=== PATIENT | female | born 1990 | race Caucasian/White ===

== ENCOUNTER → 2018-09-28 | Outpatient (CLI) | payer OTHER ==
--- NOTE | 2018-09-28 16:48 | Diagnostic Imaging Report ---
INDICATION: Supervision of normal second trimester , anatomic survey COMPARISON: None available Number: One. Presentation: Breech. Placenta: Posteriorly located without evidence of placenta previa. Amniotic fluid is subjectively within normal limits. Heart Rate: 143 bpm biometrics are symmetric. They are consistent with an estimated gestational age of 21 weeks and 5 days. Therefore, there is an estimated due date based upon this examination of February 03, 2019. FINDINGS: The anatomic survey is grossly unremarkable though limited secondary to Y. In particular, the four-chambered heart and umbilical cord insertion were not well seen. Additionally, the intracranial contents were not optimally visualized. The spine is unremarkable. The kidneys, urinary bladder, and three-vessel cord are unremarkable. IMPRESSION: Single live intrauterine at approximately 21 weeks and 5 days, with an DON of February 03, 2019. These are consistent with clinical dates. No gross abnormalities are seen at this time. However, evaluation of the intracranial contents, four-chambered heart, and cord insertion were limited secondary to lie. Biometrical measurements are as follows: Biparietal 5.23 cm, age 22 weeks 0 days. Head circumference 19.93 cm, age 22 weeks 1 days. Abdominal circumference 16.15 cm, age 21 weeks 2 days. Femur length 3.57 cm, age 21 weeks 3 days. Sonographic estimate age: 21 weeks 5 days. Sonographic estimated date of delivery: 02/03/2019. Estimated Weight: 419 gm (+/- 61 gm). LMP percentile: 13%. heart rate: 143 beats per minute. number: 1 of 1. Dictated by: Dictated on workstation # [id number]
== END ==
LOC: RAD 14:51
DX: Z34.92 Encounter for supervision of normal pregnancy, unspecified, second trimester (principal); Z3A.21 21 weeks gestation of pregnancy
CPT/HCPCS: 76805

== ENCOUNTER 2019-01-10 17:00 | Inpatient (IN) | payer OTHER ==
[~2019-01-10] VITALS: Ht 165.1 cm; Wt 63.2 kg
[2019-01-10] VITALS (33 sets, daily range): BP systolic 87–129; BP diastolic 53–80
--- NOTE | 2019-01-10 16:41 | NUR ---
SHIV ROBISON presented to unit from Dr. Orona's Office, accompanied by , with c/o LABOR. SHIV ROBISON weighed, gowned, voided, and to bed. EFHM and TOCO applied, VS taken. SHIV ROBISON oriented to bed controls, call light, TV, heat, and A/C controls.
--- NOTE | 2019-01-10 17:13 | History & Physical-OB ---
OB - Chief Complaint & HPI Date/Time Date of Admission: Date of Admission: Jan 10, 2019 at 17:00 Date seen by a Provider: Jan 10, 2019 Time Seen by a Provider: 17:11 Chief Complaint/History Hx : 7 Hx Para: 3 Expected Date of Delivery: Jan 30, 2019 Gestational Age in Weeks: 37 Gestational Age in Days: 1 Indication for induction: post dates Admission Nurse Assessment Rev: Yes History of Labs O pos Antibody neg RI RPR NR HBsAg NR HIV NR GC neg GBS neg Allergies and Home Medications Patient Home Medication List Home Medication List Reviewed: Yes OB - History Hx of Present Care: Yes Ultrasounds: Normal mid trimester US Obstetrical Complications: None Medical Complications: None Patient Past Medical History n/a OB - Admission Exam Physical Exam HEENT: NCAT Heart: Rhythm Normal Lungs: Clear Abdomen: Gravid Extremities: Normal Cervical Dilatation: 4cm Effacement: 75% Station: -1 Membranes: Intact Heart Rate: 130's Accelerations: Accelerations Present Decelerations: No Decelerations Short Term Variability: Present Repairer Veneer Sheet Variability: Average (6-25) Contractions on Admission: < 5 Minutes Apart OB - Assessment/Plan/Diagnosis Assessment Assessment: active labor Admission Dx 28 yo @ 37.1 Active labor GBS neg Admission Status: Inpatient Order (span 2 midnights) Reason for Inpatient Admission: Active labor at term NURY VELEZ DO Jan 10, 2019 17:13
[2019-01-10] MEDS ORDERED: D5 LR IV SOLUTION 1,000 ML IV ONE (17:15)
[2019-01-10] MEDS ORDERED: D5 LR IV SOLUTION 1,000 ML IV SCH (17:15)
[2019-01-10] MEDS ORDERED: LACTATED RINGERS 1,000 ML IV ONE ×3 (17:15→19:28)
[2019-01-10] MEDS ORDERED: OXYTOCIN/NORMAL SALINE 500 ML IV SCH (17:15)
[2019-01-10 17:35] LABS: BASOPHILS % (AUTO) 0 % (0-10); EOSINOPHILS # (AUTO) 0.1 10^3/uL (0.0-0.3); EOSINOPHILS % (AUTO) 1 % (0-10); HEMATOCRIT 35 % (35-52); HEMOGLOBIN 11.6 G/DL (11.5-16.0); LYMPHOCYTES % (AUTO) 17 % (12-44); MEAN CORPUSCULAR HEMOGLOBIN 28 PG (25-34); MEAN CORPUSCULAR HGB CONC 33 G/DL (32-36); MEAN CORPUSCULAR VOLUME 85 FL (80-99); MEAN PLATELET VOLUME 9.7 FL (7.4-10.4); MONOCYTES % (AUTO) 9 % (0-12); NEUTROPHILS # (AUTO) 8.8 X 10^3 (1.8-7.8); NEUTROPHILS % (AUTO) 74 % (42-75); PLATELET COUNT 238 10^3/uL (130-400); RED CELL DISTRIBUTION WIDTH 12.7 % (10.0-14.5); WHITE BLOOD COUNT 11.9 10^3/uL (4.3-11.0)
[2019-01-10] MEDS ORDERED: SUFENTA 0.6MCG/ML BUPIVA 0.125 100 ML ONE (18:16)
[2019-01-10] MEDS ORDERED: BUPIVACAINE 0.25% 30 ML (SENSORCAINE) VIAL ONE (18:54)
[2019-01-10] MEDS ORDERED: fentaNYL INJECTION 100 MCG/2 ML AMP ONE (18:54)
[2019-01-10] MEDS ORDERED: LIDOCAINE PF 2% 5 ML (XYLOCAINE) VIAL ONE (18:54)
[2019-01-10] MEDS ORDERED: NALOXONE 0.4 MG/ML 1 ML (NARCAN) VIAL IV PRN (19:30)
[2019-01-10] MEDS ORDERED: EPIDURAL (SUFENTA 0.6MCG/ML BUPIVA 0.125%) 100 ML BAG EPI PRN (19:30)
[2019-01-10] MEDS ORDERED: ONDANSETRON 4 MG/2 ML (SDV) Z0FRAN IV PRN (19:30)
--- NOTE | 2019-01-10 19:30 | NUR ---
Report to Karen GOFF.
[2019-01-10] MEDS: OXYTOCIN/NORMAL SALINE 500 ML IV SCH ×2 (20:55→21:27)
--- NOTE | 2019-01-10 21:11 | OB Labor & Delivery Record ---
L&D History Date of Service Date of Service: Jan 10, 2019 History Expected Date of Delivery: Jan 25, 2019 Gestational Age in Weeks: 37 Hx : 7 Hx Para: 3 Complications Events: Routine care Operative Indications (Cesarea: N/A-Vaginal Delivery Intrapartal Events: None L&D Stage1 Stage One Onset of Labor - Date: Jan 10, 2019 Monitors and Tracing Monitor Mode: External Heart Rate: 130 Monitor Accelerations: Uniform Monitor Decelerations: None Station: -1 Fpc Variability: Average (6-10) Short Term Variability: Present Presentation: Vertex Vital Signs VS - Last 72 Hours, by Label 01/10/19 01/10/19 01/10/19 01/10/19 16:47 17:30 18:00 18:30 Temp 36.9 Pulse 98 83 76 80 Resp 16 16 16 16 B/P (MAP) 115/66 110/72 117/72 129/62 O2 Delivery Room Air Room Air Room Air Room Air 01/10/19 19:00 Temp 37.1 Pulse 86 Resp 16 B/P (MAP) 123/69 O2 Delivery Room Air Rupture of Membranes Spontaneous Ruture of Membrane: No Amniotic Membrane Rupture Time: 1717 Amniotic Membrane Fluid Desc.: Clear Vaginal Bleeding Description: Normal Show Induction/Anesthesia Epidural Cath Placement - Time: 18:30 Progress/Notes Patient progressed rapidly after AROM to complete and + 2 station after epidural was placed without any further augmentation L&D Stage2 Stage Two Stage II Date: Jan 10, 2019 Monitors and Tracing Monitor Mode: External Heart Rate: 130 Monitor Decelerations: Variable Fpc Variability: Average (6-10) Short Term Variability: Present Position: Right Occiput Anterior Presentation: Vertex Cord Descript/Complications Cord Vessel Description: 3 Vessels Delivery Type Infant Delivery Method: Spontaneous Vaginal Anterior Shoulder: Right Episiotomy/Perineal Laceration Laceraction(s)/Extensions: No Condition of Infant Delivery 1 minute Comment: 9 5 minute Comment: 9 Notes live female weight pending Condition of Condition of Infant: Living Exam: No Observed Abnormalities Resuscitation Resuscitation: N/A - Spontaneous Resp L&D Stage3 Stage Three Stage III Date: Jan 10, 2019 Pictocin Pitocin Administration Comment: 30 mu wide open at delivery of placenta Placenta Delivery Placenta Delivery: Spontaneous Delivery Summary Summary Estimated blood loss (mL): 200 Attending at delivery: Nury Velez DO Condition of Delivery Examined: Cervix Examined, Uterus Explored Post Hemorrhage: No Condition of Mother stable Condition of Infant (s) stable NURY VELEZ DO Jan 10, 2019 9:11 pm
[2019-01-10] MEDS ORDERED: DOCU100C37 PO (21:12)
[2019-01-10] MEDS ORDERED: PNV1TABL67 PO (21:12)
[2019-01-10] MEDS ORDERED: IBUP-844 PO (21:12)
[2019-01-10] MEDS ORDERED: Benzocaine/Menthol TP (21:12)
[2019-01-10] MEDS ORDERED: ACHD5005 PO (21:12)
--- NOTE | 2019-01-10 21:13 | Discharge Inst-Women's Service ---
Discharge Inst-Women's Serv Depart Medication/Instructions New, Converted or Re-Newed RX: RX on Chart Final Diagnosis PPD 2 NVD Problems Reviewed?: Yes Consults/Follow Up Additional Follow Up: Yes Orders/Referrals Dr. Velez in 6 weeks Activity Driving Instructions: No Driving for 1 Week NO SMOKING: NO SMOKING Nothing Inside Vagina: No Douching, No [place], No Tampons Diet Discharge Diet: No Restrictions Symptoms to Report to : Bleeding Excessive, Pain Increased, Fever Over 101 D egrees F, Vaginal Bleeding Increase, Questions/Concerns For Any Problems or Questions: Contact Your Physician NURY VELEZ DO Jan 10, 2019 9:13 pm
[2019-01-10] MEDS ORDERED: WITCH HAZEL(TUCKS) 40 EA JAR TOP PRN (21:15)
[2019-01-10] MEDS ORDERED: HYDROcodone/APAP 5 MG/325 MG (LORTAB) TAB PO PRN (21:15)
[2019-01-10] MEDS ORDERED: MEASLES,MUMPS,RUBELLA 1 EA INJ SQ ONE (21:15)
[2019-01-10] MEDS ORDERED: DIBUCAINE (NUPERCAINAL) 1% OINT 30 GM TOP PRN (21:15)
[2019-01-10] MEDS ORDERED: TETANUS,DIPTH,PERTUSS P/F (BOOSTRIX) 0.5 ML VIAL IM ONE (21:15)
[2019-01-10] MEDS ORDERED: BENZOCAINE/MENTHOL (DERMOPLAST) 56 ML CAN TP PRN (21:15)
[2019-01-10] MEDS ORDERED: CATHETER FLUSH 10 ML SYR IV SCH ×2 (22:00)
[2019-01-10] MEDS: IBUPROFEN 600 MG (MOTRIN) TAB PO SCH (22:22)
--- NOTE | 2019-01-10 23:40 | NUR ---
Pt. ambulated to bathroom with standby assist without difficulty. Positive void noted. Will move to PP room 309 soon.
--- NOTE | 2019-01-10 23:45 | NUR ---
Pt. moved to PP room 309 via wheelchair. Accompanied by staff, , and . Pt. oriented to room, room service, call light, and thermostat. folder given and explained. No questions or concerns voiced at this time.
[2019-01-11 04:15] VITALS: BP 97/67
[2019-01-11] MEDS: IBUPROFEN 600 MG (MOTRIN) TAB PO SCH ×4 (04:27→21:41)
[2019-01-11 05:52] LABS: BASOPHILS % (AUTO) 0 % (0-10); EOSINOPHILS # (AUTO) 0.1 10^3/uL (0.0-0.3); EOSINOPHILS % (AUTO) 1 % (0-10); HEMATOCRIT 31 % (35-52); HEMOGLOBIN 10.2 G/DL (11.5-16.0); LYMPHOCYTES # (AUTO) 1.9 X 10^3 (1.0-4.0); LYMPHOCYTES % (AUTO) 19 % (12-44); MEAN CORPUSCULAR HEMOGLOBIN 29 PG (25-34); MEAN CORPUSCULAR HGB CONC 33 G/DL (32-36); MEAN CORPUSCULAR VOLUME 87 FL (80-99); MEAN PLATELET VOLUME 9.6 FL (7.4-10.4); MONOCYTES # (AUTO) 1.1 X 10^3 (0.0-1.0); MONOCYTES % (AUTO) 11 % (0-12); NEUTROPHILS # (AUTO) 6.7 X 10^3 (1.8-7.8); NEUTROPHILS % (AUTO) 69 % (42-75); PLATELET COUNT 170 10^3/uL (130-400); RED CELL DISTRIBUTION WIDTH 12.6 % (10.0-14.5); WHITE BLOOD COUNT 9.7 10^3/uL (4.3-11.0)
[2019-01-11] MEDS ORDERED: PRENATAL VITAMIN 1 EA TAB PO SCH (07:00)
--- NOTE | 2019-01-11 07:09 | Anesthesia-Regional Post-Op ---
Regional Patient Condition Mental Status: Alert, Oriented x3 Circulation: Same as Pre-Op Headache: Absent Sensation: Full Recovery Motor Block: Absent Post Op Complications Complications None Follow Up Care/Instructions Patient Instructions None needed. Anesthesia/Patient Condition Patient is doing well, no complaints, stable vital signs, no apparent adverse anesthesia problems. No complications reported per nursing. REBEKA BAHENA CRNA Jan 11, 2019 07:08
[2019-01-11 07:35] VITALS: BP_SYST 102; BP_SYST 103; BP_DIAS 59; BP_DIAS 67
--- NOTE | 2019-01-11 08:10 | Postpartum Progress Note ---
Note Note Day # 1 Subjective: Patient is without complaints. Ambulating, voiding. Tolerating a regular diet without nausea or vomiting. Normal lochia. Pain is well controlled with oral pain medications. Objective: Physical Exam: General - Alert and oriented, no apparent distress Abdomen - Soft, appropriately tender to palpation, non-distended, fundus firm at umbilicus Extremities - no edema, negative Orly's bilaterally Assessment: PPD 1 NVD Acute blood loss anemia Plan: Routine care. Encourage breast feeding. Encourage ambulation. Ferrous sulfate supplementation. Plan for discharge tomorrow Vitals - Labs Vital Signs - I&O Vital Signs Date Time Temp Pulse Resp B/P (MAP) Pulse Ox O2 Delivery O2 Flow Rate FiO2 01/11/19 04:15 36.7 76 16 97/67 Room Air 01/10/19 23:30 37.1 79 16 96/53 Room Air 01/10/19 23:15 85 16 98/58 Room Air 01/10/19 23:00 86 16 103/56 Room Air 01/10/19 22:45 88 16 116/73 Room Air 01/10/19 22:30 82 16 99/67 Room Air 01/10/19 22:15 71 16 103/71 Room Air 01/10/19 22:00 70 16 107/72 Room Air 01/10/19 21:45 78 16 109/69 Room Air 01/10/19 21:30 68 16 103/64 Room Air 01/10/19 21:15 84 16 87/57 100 Room Air 01/10/19 21:00 37.0 74 16 118/64 100 Room Air 01/10/19 20:45 74 16 118/64 100 Room Air 01/10/19 20:15 93 16 105/74 99 Room Air 01/10/19 20:06 71 16 110/64 98 Room Air 01/10/19 20:03 74 16 109/64 97 Room Air 01/10/19 20:00 80 16 102/79 97 Room Air 01/10/19 19:52 36.7 88 16 109/70 98 Room Air 01/10/19 19:49 79 16 107/65 98 Room Air 01/10/19 19:46 78 16 102/59 98 Room Air 01/10/19 19:43 83 16 101/63 98 Room Air 01/10/19 19:40 79 16 105/64 98 Room Air 01/10/19 19:35 77 16 110/68 98 Room Air 01/10/19 19:30 90 16 113/70 98 Room Air 01/10/19 19:25 97 16 112/78 97 Room Air 01/10/19 19:20 37.2 89 16 122/68 98 Room Air 01/10/19 19:15 78 16 111/69 99 Room Air 01/10/19 19:10 80 16 117/78 99 Room Air 01/10/19 19:05 83 16 116/80 98 Room Air 01/10/19 19:00 37.1 86 16 123/69 Room Air 01/10/19 18:30 80 16 129/62 Room Air 01/10/19 18:00 76 16 117/72 Room Air 01/10/19 17:30 83 16 110/72 Room Air 01/10/19 16:47 36.9 98 16 115/66 Room Air I & O 01/11/19 07:00 Intake Total 2600 ml Balance 2600 ml Labs Laboratory Tests 01/10/19 17:00: White Blood Count 11.9H, Red Blood Count 4.12L, Hemoglobin 11.6, Hematocrit 35, Mean Corpuscular Volume 85, Mean Corpuscular Hemoglobin 28, Mean Corpuscular Hemoglobin Concent 33, Red Cell Distribution Width 12.7, Platelet Count 238, Mean Platelet Volume 9.7, Neutrophils (%) (Auto) 74, Lymphocytes (%) (Auto) 17, Monocytes (%) (Auto) 9, Eosinophils (%) (Auto) 1, Basophils (%) (Auto) 0, Neutrophils # (Auto) 8.8H, Lymphocytes # (Auto) 2.0, Monocytes # (Auto) 1.0, Eosinophils # (Auto) 0.1, Basophils # (Auto) 0.0 01/11/19 05:25: White Blood Count 9.7, Red Blood Count 3.54L, Hemoglobin 10.2L, Hematocrit 31L, Mean Corpuscular Volume 87, Mean Corpuscular Hemoglobin 29, Mean Corpuscular Hemoglobin Concent 33, Red Cell Distribution Width 12.6, Platelet Count 170, Mean Platelet Volume 9.6, Neutrophils (%) (Auto) 69, Lymphocytes (%) (Auto) 19, Monocytes (%) (Auto) 11, Eosinophils (%) (Auto) 1, Basophils (%) (Auto) 0, Neutrophils # (Auto) 6.7, Lymphocytes # (Auto) 1.9, Monocytes # (Auto) 1.1H, Eosinophils # (Auto) 0.1, Basophils # (Auto) 0.0 NURY VELEZ DO Jan 11, 2019 08:10
[2019-01-11] MEDS ORDERED: FERROUS SULF 325 MG (IRON) TAB PO SCH (09:00)
[2019-01-11] MEDS: DOCUSATE SODIUM 100 MG (COLACE) CAP PO SCH ×2 (10:15→21:41)
[2019-01-11 11:00] VITALS: BP 107/68
[2019-01-11 20:00] VITALS: BP 107/68
--- NOTE | 2019-01-11 22:24 | NUR ---
D/C instructions given & explained, pt. verbalized understanding & signed, copy of D/C instructions & Rx to pt. Pt. left [facility] ambulatory per request, escorted by Josef Michelle RN & carrying infant in carseat, to home via private vehicle. Pt. & both properly secured in vehicle w/safety belts. Pt's belongings w/pt.
== END 2019-01-11 22:24 | disposition home or self-care (01) | DRG 806 ==
LOC: LDRP 17:00
PROVIDERS: ADMIT Obstetrics & Gynecology; ATTEND Obstetrics & Gynecology
PROC: 10E0XZZ Delivery of Products of Conception, External Approach (ICD-10-PCS; principal; 2019-01-10)
DX: O90.81 Anemia of the puerperium (principal); D62 Acute posthemorrhagic anemia; Z3A.37 37 weeks gestation of pregnancy; Z37.0 Single live birth
CPT/HCPCS: 36415; 85025; 86850; 86900; 86901

== ENCOUNTER → 2019-08-28 | Outpatient (CLI) | payer OTHER ==
[~2019-08-28] MED LIST: ACHD5005 PO; Benzocaine/Menthol TP; DOCU100C37 PO; IBUP-844 PO; PNV1TABL67 PO
--- NOTE | 2019-08-28 11:36 | Diagnostic Imaging Report ---
INDICATION: survey. TECHNIQUE: Multiple Real-time grayscale images were obtained over the gravid uterus. COMPARISON: None. FINDINGS: There is a single live fetus in a cephalic presentation. The heart rate was recorded at 144 BPM. The placenta is posterior. The amniotic fluid index is 11.4 cm. The cervical length is 3.7 cm. The kidneys, bladder, and stomach are unremarkable. The brain is unremarkable. The four-chamber heart view is somewhat limited due to position. There is a three-vessel cord with normal insertion. The spine is unremarkable. Biometrical measurements are as follows: Biparietal 4.73 cm, age 20 weeks 3 days. Head circumference 17.52 cm, age 20 weeks 1 days. Abdominal circumference 14.81 cm, age 20 weeks 1 days. Femur length 3.22 cm, age 20 weeks 1 days. Sonographic estimate age: 20 weeks 2 days. Sonographic estimated date of delivery: 01/13/2020. Estimated Weight: 330 gm (+/- 48 gm). LMP percentile: 49%. heart rate: 144 beats per minute. number: 1 of 1. IMPRESSION: Single live IUP of 20 weeks gestational age. The estimated date of confinement sonographically is 01/13/2020. The survey is unremarkable although the four-chamber heart view is somewhat limited due to position. Dictated by: Dictated on workstation # [id number]
== END ==
LOC: RAD 09:51
PROVIDERS: ATTEND Obstetrics & Gynecology
DX: Z36.9 Encounter for antenatal screening, unspecified (principal); Z3A.20 20 weeks gestation of pregnancy
CPT/HCPCS: 76805

== ENCOUNTER 2019-12-14 19:39 | Outpatient (CLI) | payer OTHER ==
[~2019-12-14] VITALS: Ht 165.1 cm; Wt 66.7 kg
[2019-12-14 19:53] VITALS: BP 140/77
--- NOTE | 2019-12-14 19:53 | NUR ---
SHIV ROBISON presented to unit via ambuatory from ED, with c/o ABD PRESSURE. SHIV ROBISON weighed, gowned, voided, and to bed. EFHM and TOCO applied, VS taken. SHIV ROBISON oriented to bed controls, call light, TV, heat, and A/C controls.
[2019-12-14 20:06] VITALS: BP 140/77
[2019-12-14 20:06] LABS: BILIRUBIN,URINE NEGATIVE (NEGATIVE); CLARITY,URINE CLEAR; COLOR,URINE YELLOW; GLUCOSE, URINE (UA) NEGATIVE (NEGATIVE); KETONES,URINE TRACE (NEGATIVE); LEUKOCYTE ESTERASE ,URINE NEGATIVE (NEGATIVE); NITRITE,URINE NEGATIVE (NEGATIVE); PROTEIN,URINE NEGATIVE (NEGATIVE)
--- NOTE | 2019-12-14 20:20 | NUR ---
Dr. fuentes updated on pt's arrival and complaints of pelvic pressure. Will cont to monitor and recheck cervix. Pt states missed OB appointment today due to taking daughter to curt to dr appointment, daughter had fractured femur, and cast removed. pt states was lifting daughter a lot today. pt states pain started this evening and has been increasing.
[2019-12-14 20:21] LABS: BACTERIA,URINE TRACE /HPF; RBC,URINE 0-2 /HPF; WBC,URINE 0-2 /HPF
[2019-12-14 20:23] LABS: AMORPHOUS SEDIMENT,UR FEW AMOR URATES /LPF
--- NOTE | 2019-12-14 21:20 | NUR ---
called and updated regarding sve, ctx's, pain and ua results. new orders received.
[2019-12-14] MEDS ORDERED: LACTATED RINGERS 1,000 ML IV SCH (21:30)
[2019-12-14 22:50] VITALS: BP 126/73
--- NOTE | 2019-12-14 22:53 | NUR ---
Pt desires to go home, called and updated on no SVE change but cont to contract. DC orders received.
[2019-12-14 22:57] VITALS: BP 126/73
--- NOTE | 2019-12-14 23:07 | NUR ---
Discharge instructions read and reviewed with pt. pt verbalized understanding.
--- NOTE | 2019-12-14 23:08 | NUR ---
Pt ambulated off unit. no s/s of distress noted.
--- NOTE | 2019-12-15 08:03 | Physician Query-Final Dx ---
HOUSTON CERVANTES 12/15/19 0803: Clinic Account Progress/Dx Physician Query: Please give diagnosis Please include # weeks gestation Date of Service Dec 14, 2019 at 19:39 NURY VELEZ DO 12/15/19 2233: Clinic Account Progress/Dx DIAGNOSIS: Diagnosis 36 week IUP Uterine contractions HOUSTON CERVANTES Dec 15, 2019 08:03 NURY VELEZ DO Dec 15, 2019 22:33
[2019-12-15] MEDS ORDERED: CEPH-507 PO (18:35)
== END 2019-12-14 23:08 | disposition home or self-care (01) ==
LOC: WSo 19:39 → LDRP 19:41 → WSo 23:08
PROVIDERS: ATTEND Obstetrics & Gynecology
DX: O62.9 Abnormality of forces of labor, unspecified (principal); Z3A.36 36 weeks gestation of pregnancy
CPT/HCPCS: 81000; 96360; G0463; 99213

== ENCOUNTER 2019-12-15 16:27 | Outpatient (CLI) | payer OTHER ==
[~2019-12-15] VITALS: Ht 165.1 cm; Wt 66.8 kg
--- NOTE | 2019-12-15 16:20 | NUR ---
SHIV ROBISON presented to unit via ambulation from ED, accompanied by , with c/o contractions since yesterday. Pt. A weighed, gowned, voided, and to bed. EFHM and TOCO applied, VS taken. Pt. A oriented to bed controls, call light, TV, heat, and A/C controls.
[2019-12-15 16:35] VITALS: BP 116/70
[2019-12-15 16:46] VITALS: BP 116/70
[2019-12-15 16:51] LABS: BILIRUBIN,URINE NEGATIVE (NEGATIVE); CLARITY,URINE SL CLOUDY; COLOR,URINE YELLOW; GLUCOSE, URINE (UA) NEGATIVE (NEGATIVE); KETONES,URINE TRACE (NEGATIVE); LEUKOCYTE ESTERASE ,URINE NEGATIVE (NEGATIVE); NITRITE,URINE NEGATIVE (NEGATIVE); PROTEIN,URINE NEGATIVE (NEGATIVE)
--- NOTE | 2019-12-15 16:54 | NUR ---
sve 3-3.5CM, THICK, POSTERIOR. BALLOTABLE
--- NOTE | 2019-12-15 16:57 | NUR ---
was called with pt's admit c/o's, monitor tracing and SVE. new orders received for IVF's, monitor and recheck in 1 hour if cont ctx'ing.
[2019-12-15] MEDS ORDERED: D5 LR IV SOLUTION 1,000 ML IV SCH (17:00)
[2019-12-15 17:14] LABS: AMORPHOUS SEDIMENT,UR RARE AMOR URATES /LPF; BACTERIA,URINE TRACE /HPF
--- NOTE | 2019-12-15 17:30 | NUR ---
#20G IV x2 attempts per this RN. site patent to Lt. hand. D5LR infusing.
--- NOTE | 2019-12-15 18:02 | NUR ---
SVE no change from previous exam
--- NOTE | 2019-12-15 18:14 | NUR ---
was called with SVE, monitor tracing and UA results. new orders received.
[2019-12-15] MEDS ORDERED: ceFAZolin INJECTION 1,000 MG in WATER (STERILE) FOR INJECTION 10 ML IV NR (18:15)
[2019-12-15] MEDS ORDERED: WATER (STERILE) FOR INJECTION 10 ML ONE (18:17)
[2019-12-15] MEDS ORDERED: ceFAZolin INJECTION 1,000 MG ONE (18:17)
--- NOTE | 2019-12-15 18:17 | NUR ---
Keflex Rx called into [facility] in [place], [place] per pt's request.
[2019-12-15] MEDS ORDERED: CEPH-507 PO (18:35)
--- NOTE | 2019-12-15 18:45 | NUR ---
IVF's infusion completed. IV site dc'd. dismissal orders given, verbalizes understanding. reviewed Keflex Rx's administration schedule and sx's to RTC. signature page signed, placed on chart.
--- NOTE | 2019-12-15 18:52 | NUR ---
pt ambulated to private vehicle with @ side. no sx's of distress noted.
--- NOTE | 2019-12-18 08:24 | Physician Query-Final Dx ---
HOUSTON CERVANTES 12/18/19 0824: Clinic Account Progress/Dx Physician Query: Please give diagnosis Please include # weeks gestation Date of Service Dec 15, 2019 at 16:27 NURY VELEZ DO 12/18/19 1205: Clinic Account Progress/Dx DIAGNOSIS: Diagnosis 35 week IUP Pelvic pressure Irregular contractions HOUSTON CERVANTES Dec 18, 2019 08:24 NURY VELEZ DO Dec 18, 2019 12:05
== END 2019-12-15 18:52 | disposition home or self-care (01) ==
LOC: WSo 16:27 → LDRP 16:28 → WSo 18:52
PROVIDERS: ATTEND Obstetrics & Gynecology
DX: O62.9 Abnormality of forces of labor, unspecified (principal); O26.893 Other specified pregnancy related conditions, third trimester; R10.2 Pelvic and perineal pain; Z3A.35 35 weeks gestation of pregnancy
CPT/HCPCS: 81000; 87088; 96361; 96374; 99214

== ENCOUNTER 2019-12-18 01:58 | Outpatient (CLI) | payer OTHER ==
[~2019-12-18] VITALS: Ht 165.1 cm; Wt 67.6 kg
[~2019-12-18 01:58] MED LIST changes: +CEPH-507 PO
--- NOTE | 2019-12-18 02:05 | NUR ---
SHIV ROBISON presented to unit via AMBULATION from HOME/ED, accompanied by SO, with c/o WATER BROKE. SHIV ROBISON weighed, gowned, voided, and to bed. EFHM and TOCO applied, VS taken. SHIV ROBISON oriented to bed controls, call light, TV, heat, and A/C controls.
[2019-12-18 02:12] VITALS: BP 126/63
[2019-12-18 02:47] VITALS: BP 110/64
--- NOTE | 2019-12-18 03:37 | NUR ---
D/C instructions given & explained & instructed pt. to go to sched office appt. Pedro pt. verbalized understanding & signed, copy of D/C instructions to pt. Pt. left [facility] ambulatory escorted by , to home via private vehicle.
--- NOTE | 2019-12-19 08:33 | Physician Query-Final Dx ---
HOUST[facility] CERVANTES 12/19/19 0833: Clinic Account Progress/Dx Physician Query: Please give diagnosis Please include # weeks gestation Date of Service Dec 18, 2019 at 01:58 NURY VELEZ DO 12/19/19 0857: Clinic Account Progress/Dx DIAGNOSIS: Diagnosis 36 week IUP Pelvic pressure HOUSTON CERVANTES Dec 19, 2019 08:33 NURY VELEZ DO Dec 19, 2019 08:57
== END 2019-12-18 03:37 | disposition home or self-care (01) ==
LOC: WSo 01:58 → LDRP 02:00 → WSo 03:37
PROVIDERS: ATTEND Obstetrics & Gynecology
DX: O42.113 Preterm premature rupture of membranes, onset of labor more than 24 hours following rupture, third trimester (principal); Z3A.36 36 weeks gestation of pregnancy
CPT/HCPCS: 99214

== ENCOUNTER 2019-12-21 18:30 | Outpatient (CLI) | payer OTHER ==
[~2019-12-21] VITALS: Ht 165 cm; Wt 67.8 kg
--- NOTE | 2019-12-21 18:40 | NUR ---
SHIV ROBISON presented to unit AMBULATORY from home, accompanied by , with c/o CONTRACTIONS. SHIV ROBISON weighed, gowned, voided, and to bed. EFHM and TOCO applied, VS taken. SHIV ROBISON oriented to bed controls, call light, TV, heat, and A/C controls. Patient complains of contractions every 7-8 min, worse since 1300 today. Has been having these contractions for over 2 weeks. Passing some bright red mucus, but states has been doing this since last week also.
[2019-12-21 18:50] VITALS: BP 119/75
[2019-12-21 19:00] VITALS: BP 119/75
[2019-12-21 19:29] LABS: BILIRUBIN,URINE NEGATIVE (NEGATIVE); COLOR,URINE YELLOW; GLUCOSE, URINE (UA) NEGATIVE (NEGATIVE); KETONES,URINE NEGATIVE (NEGATIVE); LEUKOCYTE ESTERASE ,URINE NEGATIVE (NEGATIVE); NITRITE,URINE NEGATIVE (NEGATIVE); PROTEIN,URINE TRACE (NEGATIVE)
[2019-12-21 19:30] LABS: AMORPHOUS SEDIMENT,UR MOD AMOR PHOSPHATE /LPF; BACTERIA,URINE TRACE /HPF; CLARITY,URINE SL CLOUDY; SQUAMOUS EPITHELIAL CELL,UR 0-2 /HPF
--- NOTE | 2019-12-21 20:00 | NUR ---
on unit. Notified of pt's arrival. no new orders at this time.
--- NOTE | 2019-12-21 21:30 | NUR ---
SVE performed with no cervical change. Pt ok with discharging home. Discharge instructions verbalized. pt verbalized understanding. pt dc'd home.
--- NOTE | 2019-12-22 08:16 | Physician Query-Final Dx ---
HOUSTON CERVANTES 12/22/19 0816: Clinic Account Progress/Dx Physician Query: Please give diagnosis Please include # weeks gestation Date of Service Dec 21, 2019 at 18:30 NURY VELEZ DO 12/23/19 0848: Clinic Account Progress/Dx DIAGNOSIS: Diagnosis 36 week IUP Pelvic pressure Irregular contractions HOUSTON CERVANTES Dec 22, 2019 08:16 NURY VELEZ DO Dec 23, 2019 08:48
== END 2019-12-21 21:30 ==
LOC: WSo 18:30 → LDRP 18:30 → WSo 21:30
PROVIDERS: ATTEND Obstetrics & Gynecology
DX: O62.9 Abnormality of forces of labor, unspecified (principal); Z3A.00 Weeks of gestation of pregnancy not specified
CPT/HCPCS: 81000; 87088

== ENCOUNTER 2019-12-26 12:55 | Outpatient (CLI) | payer OTHER ==
[~2019-12-26] VITALS: Ht 165.2 cm; Wt 67.7 kg
--- NOTE | 2019-12-26 13:02 | NUR ---
Arrived to unit ambulates self with c/o contractions. Wt obtained and to room 319, gowned and urine sample obtained. To bed and oriented to room, call light and surroundings. Plan of care reviewed with pt.
[2019-12-26 13:15] VITALS: BP 118/67
[2019-12-26 13:26] VITALS: BP 118/67
--- NOTE | 2019-12-26 13:42 | NUR ---
Dr Orona notified of pt arrival, gestation, c/o, assessment, sve, ctx pattern, reactive tracing. New order to ambulates and recheck pt in 1 hour. plan of care reviewed with pt and s.o.
[2019-12-26] MEDS ORDERED: PREN-37 PO (14:50)
--- NOTE | 2019-12-26 15:05 | NUR ---
Discharge instructions explained, signed and pt verbalized understanding. pt up to get dressed
--- NOTE | 2019-12-26 15:14 | NUR ---
Discharged to home. Ambulates self off unit accompanied by .
--- NOTE | 2019-12-27 08:12 | Physician Query-Final Dx ---
HOUSTON CERVANTES 12/27/19 0812: Clinic Account Progress/Dx Physician Query: Please give diagnosis Please include # weeks gestation Date of Service Dec 26, 2019 at 12:55 NURY VELEZ DO 12/27/19 0902: Clinic Account Progress/Dx DIAGNOSIS: Diagnosis 37 week IUP Irregular contractions HOUSTON CERVANTES Dec 27, 2019 08:12 NURY VELEZ DO Dec 27, 2019 09:02
== END 2019-12-26 15:14 | disposition home or self-care (01) ==
LOC: WSo 12:55 → LDRP 12:55 → WSo 15:14
PROVIDERS: ATTEND Obstetrics & Gynecology
DX: O62.9 Abnormality of forces of labor, unspecified (principal); Z3A.37 37 weeks gestation of pregnancy

== ENCOUNTER 2019-12-27 11:00 | Inpatient (IN) | payer OTHER ==
[~2019-12-27] VITALS: Ht 66.9 cm; Wt 165.1 kg
[2019-12-27] VITALS (31 sets, daily range): BP systolic 96–126; BP diastolic 49–78
[~2019-12-27 11:00] MED LIST changes: +PREN-37 PO
--- NOTE | 2019-12-27 11:05 | NUR ---
Pt arrived to unit ambulates self for onset of labor. wt obtained and to room 320. gowned and urine sample obtained. Plan of care reviewed with pt. Oriented to room, call light and surroundings.
[2019-12-27] MEDS ORDERED: D5 LR IV SOLUTION 1,000 ML IV SCH (11:13)
[2019-12-27 11:55] LABS: BASOPHILS % (AUTO) 0 % (0-10); EOSINOPHILS # (AUTO) 0.1 10^3/uL (0.0-0.3); EOSINOPHILS % (AUTO) 0 % (0-10); HEMATOCRIT 34 % (35-52); LYMPHOCYTES # (AUTO) 1.9 X 10^3 (1.0-4.0); LYMPHOCYTES % (AUTO) 13 % (12-44); MEAN CORPUSCULAR HEMOGLOBIN 28 PG (25-34); MEAN CORPUSCULAR HGB CONC 33 G/DL (32-36); MEAN CORPUSCULAR VOLUME 86 FL (80-99); MEAN PLATELET VOLUME 9.7 FL (7.4-10.4); MONOCYTES # (AUTO) 1.5 X 10^3 (0.0-1.0); MONOCYTES % (AUTO) 10 % (0-12); NEUTROPHILS # (AUTO) 11.1 X 10^3 (1.8-7.8); NEUTROPHILS % (AUTO) 76 % (42-75); PLATELET COUNT 215 10^3/uL (130-400); RED CELL DISTRIBUTION WIDTH 12.6 % (10.0-14.5); WHITE BLOOD COUNT 14.6 10^3/uL (4.3-11.0)
[2019-12-27] MEDS ORDERED: fentaNYL 2 mcg/ml BUPIVA 0.125 100 ML ONE (12:30)
[2019-12-27 13:07] LABS: BAND NEUTROPHILS 2 %; LYMPHOCYTES % (MANUAL) 19 %; MONOCYTES % (MANUAL) 9 %; NEUTROPHILS % (MANUAL) 69 %
[2019-12-27 13:08] LABS: RBC MORPH NORMAL
[2019-12-27] MEDS ORDERED: LACTATED RINGERS 1,000 ML IV ONE ×2 (13:17→14:45)
[2019-12-27] MEDS ORDERED: EPIDURAL (fentaNYL 2 MCG/ML BUPIVA 0.125%)100 ML BAG EPI SCH (13:30)
[2019-12-27] MEDS ORDERED: NALOXONE 0.4 MG/ML 1 ML (NARCAN) VIAL IV PRN ×2 (13:30)
[2019-12-27] MEDS ORDERED: ONDANSETRON 4 MG/2 ML (SDV) Z0FRAN IV PRN (13:30)
[2019-12-27] MEDS ORDERED: diphenhydrAMINE 50 MG/ML INJ (BENADRYL) IV PRN (13:30)
[2019-12-27] MEDS ORDERED: METOCLOPRAMIDE INJ 10 MG/2 ML (REGLAN) IV PRN (13:30)
[2019-12-27] MEDS ORDERED: CATHETER FLUSH 10 ML SYR IV SCH ×2 (14:00→22:00)
[2019-12-27] MEDS ORDERED: OXYTOCIN PRE-MIX DRIP 500 ML IV ONE ×2 (15:06→15:53)
--- NOTE | 2019-12-27 15:24 | NUR ---
spontaneous vaginal delivery of placenta with cord. fundal massage per dr Orona with moderate rubra noted. perineum examined with no repairs needed. plan of care reviewed with pt. 1536 assisted to sf position. pericare, pad under pt with lt rubra noted ffu/0. gown changed 1551 ffu/0 with lt rubra noted 1605 ffu/0 with lt rubra noted 1620 ffu/0 with lt-mod rubra noted.
[2019-12-27] MEDS ORDERED: OXYTOCIN PRE-MIX DRIP 500 ML IV SCH (15:43)
[2019-12-27] MEDS ORDERED: HYDROcodone/APAP 5 MG/325 MG (LORTAB) TAB PO PRN (15:45)
[2019-12-27] MEDS ORDERED: MEASLES,MUMPS,RUBELLA 1 EA INJ SQ ONE (15:45)
[2019-12-27] MEDS ORDERED: TETANUS,DIPTH,PERTUSS P/F (BOOSTRIX) 0.5 ML VIAL IM ONE (15:45)
[2019-12-27] MEDS ORDERED: WITCH HAZEL(TUCKS) 40 EA JAR TOP PRN (15:45)
[2019-12-27] MEDS ORDERED: BENZOCAINE/MENTHOL (DERMOPLAST) 60 ML CAN TP PRN (15:45)
--- NOTE | 2019-12-27 16:40 | NUR ---
[place] tray to bedside table.
--- NOTE | 2019-12-27 17:23 | OB Labor & Delivery Record ---
L&D History Date of Service Date of Service: Dec 27, 2019 History Expected Date of Delivery: Jan 15, 2020 Gestational Age in Weeks: 37 Hx : 2 Complications Events: Routine care Operative Indications (Cesarea: N/A-Vaginal Delivery Intrapartal Events: None L&D Stage1 Stage One Onset of Labor - Date: Dec 27, 2019 Monitors and Tracing Monitor Mode: External Heart Rate: 120 Monitor Accelerations: Uniform Monitor Decelerations: None Station: -1 Shorts Sifter Variability: Average (6-10) Short Term Variability: Present Presentation: Vertex Vital Signs VS - Last 72 Hours, by Label 12/27/19 12/27/19 12/27/19 12/27/19 11:20 12:55 13:00 13:05 Temp 36.4 Pulse 95 82 89 93 Resp 18 18 18 18 B/P (MAP) 120/62 (81) 125/75 (92) 126/78 (94) Pulse Ox 98 100 100 100 O2 Delivery Room Air Room Air 12/27/19 12/27/19 12/27/19 12/27/19 13:10 13:15 13:18 13:20 Pulse 95 93 96 94 Resp 18 18 18 18 B/P (MAP) 115/67 (83) 109/60 (76) 104/59 (74) 102/56 (71) Pulse Ox 99 100 100 100 O2 Delivery Room Air 12/27/19 12/27/19 12/27/19 12/27/19 13:23 13:26 13:29 13:30 Pulse 80 83 83 88 Resp 18 18 18 18 B/P (MAP) 102/57 (72) 111/63 (79) 100/55 (70) 103/56 (72) Pulse Ox 100 100 100 100 O2 Delivery Room Air 12/27/19 12/27/19 12/27/19 12/27/19 13:35 13:38 13:40 13:45 Temp 36.5 Pulse 90 84 83 81 Resp 18 18 18 18 B/P (MAP) 98/54 (69) 96/51 (66) 103/62 (76) 102/61 (75) Pulse Ox 100 100 100 O2 Delivery Room Air 12/27/19 12/27/19 12/27/19 12/27/19 13:50 13:55 14:00 14:05 Pulse 81 85 83 80 Resp 18 18 18 18 B/P (MAP) 106/64 (78) 105/66 (79) 101/62 (75) 103/62 (76) Pulse Ox 100 100 O2 Delivery Room Air Room Air 12/27/19 12/27/19 12/27/19 12/27/19 14:15 14:20 14:30 14:40 Pulse 83 96 82 86 Resp 18 18 18 18 B/P (MAP) 108/59 (75) 96/57 (70) Pulse Ox 100 100 99 100 O2 Delivery Room Air Room Air Room Air Room Air 12/27/19 12/27/19 12/27/19 12/27/19 14:45 14:50 15:00 15:05 Pulse 88 81 88 81 Resp 18 18 18 18 B/P (MAP) 103/58 (73) 101/62 (75) Pulse Ox 100 100 100 100 O2 Delivery Room Air Room Air Room Air Room Air 12/27/19 12/27/19 12/27/19 12/27/19 15:15 15:21 15:36 15:51 Temp 37.3 Pulse 85 94 80 83 Resp 18 18 18 18 B/P (MAP) 102/49 (66) 102/67 (79) Pulse Ox 100 100 O2 Delivery Room Air Room Air Room Air Room Air 12/27/19 12/27/19 12/27/19 16:05 16:11 16:20 Temp 36.3 Pulse 112 81 72 Resp 18 18 18 B/P (MAP) 96/75 (82) 107/67 (80) 104/60 (75) O2 Delivery Room Air Room Air Room Air Rupture of Membranes Spontaneous Ruture of Membrane: No Amniotic Membrane Rupture Time: 1220 Amniotic Membrane Fluid Desc.: Clear Vaginal Bleeding Description: Normal Show Induction/Anesthesia Epidural Cath Placement - Time: 1303 Progress/Notes Patient received an epidural no further augmentation done other than AROM, she progressed to complete and +3 station L&D Stage2 Monitors and Tracing Monitor Mode: External Heart Rate: 120 Monitor Accelerations: Uniform Monitor Decelerations: Variable Half-Way Variability: Average (6-10) Short Term Variability: Present Position: Right Occiput Anterior Presentation: Vertex Cord Descript/Complications Cord Vessel Description: 3 Vessels Delivery Type Delivery Method: Spontaneous Vaginal Anterior Shoulder: Left Episiotomy/Perineal Laceration Laceraction(s)/Extensions: No Condition of Infant Delivery 1 minute Comment: 8 5 minute Comment: 9 Notes live male infant weight 7 lbs Condition of Condition of : Living Exam: No Observed Abnormalities Resuscitation Resuscitation: N/A - Spontaneous Resp L&D Stage3 Stage Three Stage III Date: Dec 27, 2019 Pictocin Pitocin Administration Comment: 30 mu wide open at delivery of placenta Placenta Delivery Placenta Delivery: Spontaneous Delivery Summary Summary Estimated blood loss (mL): 250 Attending at delivery: Nury Velez DO Condition of Delivery Examined: Cervix Examined, Uterus Explored Post Hemorrhage: No Condition of Mother stable Condition of (s) stable NURY VELEZ DO Dec 27, 2019 5:23 pm
--- NOTE | 2019-12-27 17:26 | History & Physical-OB ---
OB - Chief Complaint & HPI Date/Time Date of Admission: Date of Admission: Dec 27, 2019 at 11:00 am Date seen by a Provider: Dec 27, 2019 Time Seen by a Provider: 17:24 Chief Complaint/History OB-Reason for Admission/Chief: Onset of Labor Hx : 8 Hx Para: 4 Expected Date of Delivery: Jan 15, 2020 Gestational Age in Weeks: 37 Gestational Age in Days: 2 Admission Nurse Assessment Rev: Yes History of Labs GBS neg Allergies and Home Medications Allergies Coded Allergies: No Known Drug Allergies (Unverified , 01/10/19) Home Medications Vit/Iron Fumarate/FA 1 Each Tablet, 1 EACH PO DAILY, (Reported) Patient Home Medication List Home Medication List Reviewed: Yes OB - History Hx of Present Care: Yes Ultrasounds: Normal mid trimester US Obstetrical Complications: None Medical Complications: None Obstetrical History Hx : 2 Delivery History Adverse Rxn to Tranfusion: No Patient Past Medical History n/a Social History/Family History Recent Infectious Disease Expo: No Alcohol Use: Denies Use Recreational Drug Use: No 2nd Hand Smoke Exposure: No Immunizations Hepatitis A: Yes Hepatitis B: Yes OB - Admission Exam Physical Exam Vitals: Vital Signs 12/27/19 12/27/19 12/27/19 15:21 16:05 16:20 Temp 36.3 Pulse 72 Resp 18 B/P (MAP) 104/60 (75) Pulse Ox 100 O2 Delivery Room Air HEENT: NCAT Heart: Rhythm Normal Lungs: Clear Abdomen: Gravid Extremities: Normal Reflexes: Normal Cervical Dilatation: 6cm Effacement: 75% Station: -1 Membranes: Intact Heart Rate: 130's Accelerations: Accelerations Present Decelerations: No Decelerations Short Term Variability: Present 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 [employer] Variability: Average (6-25) Contractions on Admission: 6-10 Minutes Apart Intensity: Firm Labs Laboratory Tests Test 12/27/19 11:40 Range/Units White Blood Count 14.6 H 4.3-11.0 10^3/uL Red Blood Count 3.89 L 4.35-5.85 10^6/uL Hemoglobin 11.0 L 11.5-16.0 G/DL Hematocrit 34 L 35-52 % Mean Corpuscular Volume 86 80-99 FL Mean Corpuscular Hemoglobin 28 25-34 PG Mean Corpuscular Hemoglobin Concent 33 32-36 G/DL Red Cell Distribution Width 12.6 10.0-14.5 % Platelet Count 215 130-400 10^3/uL Mean Platelet Volume 9.7 7.4-10.4 FL Neutrophils (%) (Auto) 76 H 42-75 % Lymphocytes (%) (Auto) 13 12-44 % Monocytes (%) (Auto) 10 0-12 % Eosinophils (%) (Auto) 0 0-10 % Basophils (%) (Auto) 0 0-10 % Neutrophils # (Auto) 11.1 H 1.8-7.8 X 10^3 Lymphocytes # (Auto) 1.9 1.0-4.0 X 10^3 Monocytes # (Auto) 1.5 H 0.0-1.0 X 10^3 Eosinophils # (Auto) 0.1 0.0-0.3 10^3/uL Basophils # (Auto) 0.0 0.0-0.1 10^3/uL Neutrophils % (Manual) 69 % Lymphocytes % (Manual) 19 % Monocytes % (Manual) 9 % Band Neutrophils 2 % Blood Morphology Comment NORMAL OB - Assessment/Plan/Diagnosis Assessment Assessment: active labor Admission Dx 29 yo @ 37.2 GBS neg Active labor Admission Status: Inpatient Order (span 2 midnights) Reason for Inpatient Admission: Active labor at term Plan Plan: Expectant Management NURY VELEZ DO Dec 27, 2019 5:26 pm
--- NOTE | 2019-12-27 17:30 | NUR ---
pericare, pad changed. ffu/0 with lt-mod rubra noted. pt assisted to wheelchair and transferred to room 312. oriented to room, call light and surroundings. info packet discussed. pt denies needs
[2019-12-27] MEDS: IBUPROFEN 600 MG (MOTRIN) TAB PO SCH (18:31)
[2019-12-27] MEDS: DOCUSATE SODIUM 100 MG (COLACE) CAP PO SCH (19:55)
[2019-12-28 00:15] VITALS: BP 102/61
[2019-12-28] MEDS: IBUPROFEN 600 MG (MOTRIN) TAB PO SCH ×3 (00:18→12:50)
[2019-12-28 04:00] VITALS: BP 105/63
[2019-12-28 05:20] LABS: BASOPHILS % (AUTO) 0 % (0-10); EOSINOPHILS # (AUTO) 0.1 10^3/uL (0.0-0.3); EOSINOPHILS % (AUTO) 1 % (0-10); HEMATOCRIT 31 % (35-52); HEMOGLOBIN 9.8 G/DL (11.5-16.0); LYMPHOCYTES # (AUTO) 2.1 X 10^3 (1.0-4.0); LYMPHOCYTES % (AUTO) 20 % (12-44); MEAN CORPUSCULAR HEMOGLOBIN 28 PG (25-34); MEAN CORPUSCULAR HGB CONC 32 G/DL (32-36); MEAN CORPUSCULAR VOLUME 88 FL (80-99); MEAN PLATELET VOLUME 9.8 FL (7.4-10.4); MONOCYTES # (AUTO) 1.2 X 10^3 (0.0-1.0); MONOCYTES % (AUTO) 12 % (0-12); NEUTROPHILS # (AUTO) 7.3 X 10^3 (1.8-7.8); NEUTROPHILS % (AUTO) 68 % (42-75); PLATELET COUNT 186 10^3/uL (130-400); RED CELL DISTRIBUTION WIDTH 12.8 % (10.0-14.5); WHITE BLOOD COUNT 10.8 10^3/uL (4.3-11.0)
--- NOTE | 2019-12-28 07:26 | Postpartum Progress Note ---
Note Note Day # 1 Subjective: Patient is without complaints. Ambulating, voiding. Tolerating a regular diet without nausea or vomiting. Normal lochia. Pain is well controlled with oral pain medications. Formula feeding. Objective: Physical Exam: General - Alert and oriented, no apparent distress Abdomen - Soft, appropriately tender to palpation, non-distended, fundus firm at umbilicus Extremities - no edema, negative Orly's bilaterally Assessment: Post- day # 1, status post 1 vaginal delivery. Recovering well, hemodynamically stable Plan: Routine care. Encourage ambulation. Ferrous sulfate supplementation. Plan for discharge today if is cleared for discharge by reproduction order processor. Vitals - Labs Vital Signs - I&O Vital Signs Date Time Temp Pulse Resp B/P (MAP) Pulse Ox O2 Delivery O2 Flow Rate FiO2 12/28/19 04:00 37.2 89 16 105/63 (77) 99 Room Air 12/28/19 00:15 37.1 73 16 102/61 (75) 99 Room Air 12/27/19 19:55 37.2 89 18 106/63 (77) 97 Room Air 12/27/19 17:03 86 18 111/56 (74) Room Air 12/27/19 16:20 72 18 104/60 (75) Room Air 12/27/19 16:11 81 18 107/67 (80) Room Air 12/27/19 16:05 36.3 112 18 96/75 (82) Room Air 12/27/19 15:51 83 18 102/67 (79) Room Air 12/27/19 15:36 37.3 80 18 102/49 (66) Room Air 12/27/19 15:21 94 18 100 Room Air 12/27/19 15:15 85 18 100 Room Air 12/27/19 15:05 81 18 101/62 (75) 100 Room Air 12/27/19 15:00 88 18 100 Room Air 12/27/19 14:50 81 18 103/58 (73) 100 Room Air 12/27/19 14:45 88 18 100 Room Air 12/27/19 14:40 86 18 96/57 (70) 100 Room Air 12/27/19 14:30 82 18 99 Room Air 12/27/19 14:20 96 18 108/59 (75) 100 Room Air 12/27/19 14:15 83 18 100 Room Air 12/27/19 14:05 80 18 103/62 (76) 12/27/19 14:00 83 18 101/62 (75) 100 Room Air 12/27/19 13:55 85 18 105/66 (79) 12/27/19 13:50 81 18 106/64 (78) 100 Room Air 12/27/19 13:45 81 18 102/61 (75) 100 Room Air 12/27/19 13:40 83 18 103/62 (76) 12/27/19 13:38 84 18 96/51 (66) 100 12/27/19 13:35 36.5 90 18 98/54 (69) 100 12/27/19 13:30 88 18 103/56 (72) 100 Room Air 12/27/19 13:29 83 18 100/55 (70) 100 12/27/19 13:26 83 18 111/63 (79) 100 12/27/19 13:23 80 18 102/57 (72) 100 12/27/19 13:20 94 18 102/56 (71) 100 12/27/19 13:18 96 18 104/59 (74) 100 12/27/19 13:15 93 18 109/60 (76) 100 Room Air 12/27/19 13:10 95 18 115/67 (83) 99 12/27/19 13:05 93 18 126/78 (94) 100 12/27/19 13:00 89 18 125/75 (92) 100 Room Air 12/27/19 12:55 82 18 120/62 (81) 100 12/27/19 11:20 36.4 95 18 98 Room Air I & O 12/28/19 07:00 Intake Total 3000 ml Balance 3000 ml Labs Laboratory Tests 12/27/19 11:40: White Blood Count 14.6H, Red Blood Count 3.89L, Hemoglobin 11.0L, Hematocrit 34L , Mean Corpuscular Volume 86, Mean Corpuscular Hemoglobin 28, Mean Corpuscular Hemoglobin Concent 33, Red Cell Distribution Width 12.6, Platelet Count 215, Mean Platelet Volume 9.7, Neutrophils (%) (Auto) 76H, Lymphocytes (%) (Auto) 13, Monocytes (%) (Auto) 10, Eosinophils (%) (Auto) 0, Basophils (%) (Auto) 0, Neutrophils # (Auto) 11.1H, Lymphocytes # (Auto) 1.9, Monocytes # (Auto) 1.5H, Eosinophils # (Auto) 0.1, Basophils # (Auto) 0.0, Neutrophils % (Manual) 69, Lymphocytes % (Manual) 19, Monocytes % (Manual) 9, Band Neutrophils 2, Blood Morphology Comment NORMAL 12/28/19 04:32: White Blood Count 10.8, Red Blood Count 3.51L, Hemoglobin 9.8L, Hematocrit 31L, Mean Corpuscular Volume 88, Mean Corpuscular Hemoglobin 28, Mean Corpuscular Hemoglobin Concent 32, Red Cell Distribution Width 12.8, Platelet Count 186, Mean Platelet Volume 9.8, Neutrophils (%) (Auto) 68, Lymphocytes (%) (Auto) 20, Monocytes (%) (Auto) 12, Eosinophils (%) (Auto) 1, Basophils (%) (Auto) 0, Neutrophils # (Auto) 7.3, Lymphocytes # (Auto) 2.1, Monocytes # (Auto) 1.2H, Eosinophils # (Auto) 0.1, Basophils # (Auto) 0.0 AARON MCFADDEN [facility] Dec 28, 2019 07:26
[2019-12-28] MEDS ORDERED: HYDR-3812 PO (08:08)
[2019-12-28] MEDS ORDERED: DCS100C PO (08:08)
[2019-12-28] MEDS ORDERED: FERR325T18 PO (08:08)
[2019-12-28] MEDS ORDERED: BENZ78AE2 TP (08:08)
[2019-12-28] MEDS ORDERED: IBUP-844 PO (08:08)
--- NOTE | 2019-12-28 08:08 | Discharge Inst-Women's Service ---
Discharge Inst-Women's Serv Depart Medication/Instructions New, Converted or Re-Newed RX: RX on Chart Final Diagnosis PPD 1 NVD Problems Reviewed?: Yes Consults/Follow Up Additional Follow Up: Yes Orders/Referrals Dr. Velez in 6 weeks Activity Activity: Activity as Tolerated Driving Instructions: No Driving for 1 Week NO SMOKING: NO SMOKING Nothing Inside Vagina: No Douching, No [place], No Tampons Diet Discharge Diet: No Restrictions Symptoms to Report to : Bleeding Excessive, Pain Increased, Fever Over 101 Degrees F, Vaginal Bleeding Increase, Questions/Concerns For Any Problems or Questions: Contact Your Physician NURY VELEZ DO Dec 28, 2019 08:08
--- NOTE | 2019-12-28 08:28 | NUR ---
here. pending dismissal orders receivedd.
[2019-12-28] MEDS ORDERED: FERROUS SULF 325 MG (IRON) TAB PO SCH (09:00)
[2019-12-28] MEDS: DOCUSATE SODIUM 100 MG (COLACE) CAP PO SCH (09:04)
[2019-12-28 09:05] VITALS: BP 109/70
--- NOTE | 2019-12-28 09:05 | NUR ---
initial shift assessment completed. see interventions for further.
--- NOTE | 2019-12-28 14:46 | Anesthesia-Regional Post-Op ---
Regional Patient Condition Mental Status: Alert, Oriented x3 Circulation: Same as Pre-Op Headache: Absent Sensation: Full Recovery Motor Block: Absent Post Op Complications Complications None Follow Up Care/Instructions Patient Instructions None needed. Anesthesia/Patient Condition Patient is doing well, no complaints, stable vital signs, no apparent adverse anesthesia problems. BINTA HORTON DO Dec 28, 2019 14:46
--- NOTE | 2019-12-28 14:50 | NUR ---
dismissal instructions given, verbalizes understanding. reviewed follow up appointment and Rx's. signature page signed, placed on chart.
--- NOTE | 2019-12-28 17:40 | NUR ---
PT DISCHARGED FROM [facility] TO PERSONAL [facility] VIA AMBULATORY IN STABLE CONDITION ACC BY Porsha WILLSON RN AND S/O.
== END 2019-12-28 17:40 | disposition home or self-care (01) | DRG 807 ==
LOC: LDRP 11:00
PROVIDERS: ADMIT Obstetrics & Gynecology; ATTEND Obstetrics & Gynecology
PROC: 10E0XZZ Delivery of Products of Conception, External Approach (ICD-10-PCS; principal; 2019-12-27)
PROC: 10907ZC Drainage of Amniotic Fluid, Therapeutic from Products of Conception, Via Natural or Artificial Opening (ICD-10-PCS; 2019-12-27)
DX: O80 Encounter for full-term uncomplicated delivery (principal); Z37.0 Single live birth; Z3A.37 37 weeks gestation of pregnancy
CPT/HCPCS: 36415; 85007; 85025; 85027; 86850; 86900; 86901; 99212

== ENCOUNTER 2020-02-27 05:34 | Outpatient (RCR) | payer OTHER ==
[~2020-02-27] VITALS: Ht 165.1 cm; Wt 61.4 kg
[~2020-02-27 05:34] MED LIST changes: +BENZ78AE5 TP; +DCS100C PO; +FERR325T18 PO
== END 2020-02-27 10:17 | disposition home or self-care (01) ==
LOC: PREOP 05:34
PROVIDERS: ATTEND Obstetrics & Gynecology
DX: Z01.812 Encounter for preprocedural laboratory examination (principal); Z20.828 Contact with and (suspected) exposure to other viral communicable diseases
CPT/HCPCS: 87635

== ENCOUNTER 2020-03-01 06:05 | Observation (INO) | payer OTHER ==
[2020-03-01] VITALS (10 sets, daily range): BP systolic 92–115; BP diastolic 55–77
[~2020-03-01] VITALS: Ht 165.1 cm; Wt 61.4 kg
[2020-03-01] MEDS ORDERED: LACTATED RINGERS 1,000 ML IV PRN (06:10)
[2020-03-01] MEDS ORDERED: LACTATED RINGERS 1,000 ML IV ONE (06:12)
[2020-03-01] MEDS ORDERED: ceFAZolin INJECTION 1,000 MG in WATER (STERILE) FOR INJECTION 10 ML IV ONE (06:15)
[2020-03-01 06:44] LABS: BASOPHILS % (AUTO) 0 % (0-10); EOSINOPHILS # (AUTO) 0.1 10^3/uL (0.0-0.3); EOSINOPHILS % (AUTO) 1 % (0-10); HEMATOCRIT 43 % (35-52); LYMPHOCYTES # (AUTO) 1.7 10^3/uL (1.0-4.0); LYMPHOCYTES % (AUTO) 22 % (12-44); MEAN CORPUSCULAR HEMOGLOBIN 28 pg (25-34); MEAN CORPUSCULAR HGB CONC 33 g/dL (32-36); MEAN CORPUSCULAR VOLUME 86 fL (80-99); MEAN PLATELET VOLUME 9.1 fL (9.0-12.2); MONOCYTES # (AUTO) 0.8 10^3/uL (0.0-1.0); MONOCYTES % (AUTO) 11 % (0-12); NEUTROPHILS % (AUTO) 66 % (42-75); PLATELET COUNT 280 10^3/uL (130-400); WHITE BLOOD COUNT 7.6 10^3/uL (4.3-11.0)
[2020-03-01] MEDS ORDERED: fentaNYL INJECTION 100 MCG/2 ML AMP ONE (06:44)
[2020-03-01] MEDS ORDERED: MIDAZOLAM 2 MG/2 ML (VERSED) VIAL ONE (06:45)
[2020-03-01] MEDS ORDERED: proPOfol 200 MG/20 ML (DIPRIVAN) VIAL IV ONE (06:45)
[2020-03-01] MEDS ORDERED: LIDOCAINE PF 2% 5 ML (XYLOCAINE) VIAL ONE (06:45)
[2020-03-01] MEDS ORDERED: ONDANSETRON 4 MG/2 ML (SDV) Z0FRAN ONE ×2 (06:45→09:08)
[2020-03-01] MEDS ORDERED: ROCURONIUM 10 MG/ML 5 ML SYRINGE IV ONE (06:46)
[2020-03-01] MEDS ORDERED: SEVOFLURANE (ULTANE) 15 ML INHAL SOLN ONE ×2 (06:46→08:20)
[2020-03-01 06:56] LABS: ALBUMIN 4.9 GM/DL (3.2-4.5); CHLORIDE 107 MMOL/L (98-107); SODIUM 139 MMOL/L (135-145)
[2020-03-01 06:58] LABS: CALCIUM 9.3 MG/DL (8.5-10.1)
[2020-03-01 06:59] LABS: GLUCOSE 94 MG/DL (70-105); TOTAL PROTEIN 7.6 GM/DL (6.4-8.2)
[2020-03-01 07:00] LABS: CARBON DIOXIDE 20 MMOL/L (21-32)
[2020-03-01 07:02] LABS: ALKALINE PHOSPHATASE 91 U/L (40-136)
[2020-03-01 07:03] LABS: CREATININE SERUM 0.74 MG/DL (0.60-1.30); GFR ESTIMATED > 60
[2020-03-01] MEDS ORDERED: BUPIVACAINE 0.25% 30 ML (SENSORCAINE) VIAL ONE (07:03)
[2020-03-01 07:04] LABS: BUN/CREATININE RATIO 24
[2020-03-01 07:05] LABS: ALANINE AMINOTRANSFERASE 17 U/L (0-55)
--- NOTE | 2020-03-01 07:08 | Progress Note-Pre Operative ---
Pre-Operative Progress Note H&P Reviewed The H&P was reviewed, patient examined and no changes noted. Date Seen by Provider: Mar 01, 2020 Time Seen by Provider: 07:05 Date H&P Reviewed: Mar 01, 2020 Time H&P Reviewed: 07:05 Pre-Operative Diagnosis: NURY OVALLES DO Mar 01, 2020 07:08
--- NOTE | 2020-03-01 07:11 | Discharge Inst-Women's Service ---
Discharge Inst-Women's Serv Depart Medication/Instructions New, Converted or Re-Newed RX: RX on Chart Final Diagnosis POD 0 RATLH Problems Reviewed?: Yes Consults/Follow Up Additional Follow Up: Yes Orders/Referrals Dr. Orona in 7-10 days and in 8 weeks Activity Activity: Activity as Tolerated Driving Instructions: No Driving for 1 Week NO SMOKING: NO SMOKING Nothing Inside Vagina: No Douching, No [place], No Tampons Diet Discharge Diet: No Restrictions Symptoms to Report to : Bleeding Excessive, Pain Increased, Fever Over 101 Degrees F, Vaginal Bleeding Increase, Questions/Concerns For Any Problems or Questions: Contact Your Physician Skin/Wound Care Infection Signs and Symptoms: Increased Redness, Foul Odor of Wound, Increased Drainage, Skin Itchy or Has a Rash, Increased Swelling, Temperature Above 101 F Operative Area Clean and Dry: Keep Incision Clean/Dry Stitches/[place]/Dermabond: Dermabond, Care of Stitches Bathing Instructions: NURY Lou DO Mar 01, 2020 07:11
[2020-03-01] MEDS ORDERED: IBUP-844 PO (07:14)
[2020-03-01] MEDS ORDERED: DCS100C PO (07:14)
[2020-03-01] MEDS ORDERED: SIME80TA16 PO (07:14)
[2020-03-01] MEDS ORDERED: HYDR-34 PO (07:14)
[2020-03-01] MEDS ORDERED: ONDANSETRON 4 MG/2 ML (SDV) Z0FRAN IV PRN (07:15)
[2020-03-01] MEDS ORDERED: SIMETHICONE 80 MG (MYLICON) CHEW PO PRN (07:15)
[2020-03-01] MEDS ORDERED: DOCUSATE SODIUM 100 MG (COLACE) CAP PO PRN (07:15)
[2020-03-01] MEDS ORDERED: KETOROLAC 30 MG/ML VIAL IV PRN (07:15)
[2020-03-01] MEDS ORDERED: CHLORASEPTIC LOZENGE MM PRN (07:15)
[2020-03-01] MEDS ORDERED: ZOLPIDEM 5 MG (AMBIEN) TAB PO PRN (07:15)
[2020-03-01] MEDS ORDERED: ANTACID SUSP 30 ML UDC (MYLANTA) PO PRN (07:15)
[2020-03-01] MEDS ORDERED: HYDROcodone/APAP 7.5 MG/325 MG (LORTAB, LORCET PLUS) TABLET PO PRN (07:15)
[2020-03-01] MEDS ORDERED: NEOSTIGMINE 3 MG/3 ML VIAL ONE (08:42)
[2020-03-01] MEDS ORDERED: GLYCOPYRROLATE 0.2 MG/ML (ROBINUL) 2 ML VIAL ONE (08:42)
[2020-03-01] MEDS ORDERED: MEPERIDINE (DEMEROL) INJ 50 MG/ML IVP ONE (09:15)
[2020-03-01] MEDS ORDERED: PROMETHAZINE INJ 25 MG/ML (PHENERGAN) AMP IVP ONE (09:15)
[2020-03-01] MEDS ORDERED: KETOROLAC 30 MG/ML VIAL IVP ONE (09:15)
[2020-03-01] MEDS ORDERED: morphine INJ 10 MG/ML 1ML (SYR OR VIAL) IVP ONE (09:15)
[2020-03-01] MEDS: ONDANSETRON 4 MG/2 ML (SDV) Z0FRAN IVP PRN ×2 (09:16→13:49)
[2020-03-01] MEDS ORDERED: KETOROLAC 30 MG/ML VIAL ONE (09:22)
[2020-03-01] MEDS ORDERED: morphine INJ 10 MG/ML 1ML (SYR OR VIAL) ONE (09:22)
[2020-03-01] MEDS ORDERED: SUGAMMADEX 500 MG/5 ML VIAL (BRIDION) IV ONE (09:25)
[2020-03-01] MEDS: LACTATED RINGERS 1,000 ML IV SCH ×2 (09:29→10:15)
--- NOTE | 2020-03-01 10:00 | NUR ---
TO [facility] VIA BED FROM RECOVERY FOLLOWING [facility] WITH SALPINGECTOMY. A/OX3. DROWSY, SKIN PALE, SEE HEAD TO TOE FOR TOTAL ASSESSMENT. REQUEST PAIN MEDICATIONS REVIEWED MEDICATION WITH PATIENT. JOSIE TO D/D. FRESH ICE WATER PLACED AT BEDSIDE. SALTINE CRACKERS GIVEN PRIOR TO ADMINISTERING FURTHER PAIN MEDICATIONS. CONTINUING TO MONITOR. REVIEWED DIET ORDER, ROOM SERVICE, VISITOR POLICY, DURING PANDEMIC, POC, RAPID RESPONSE TEAM, CALL LIGHT, AND ROOM TEMP CONTROL. DENIES FURTHER NEED AT THIS TIME.
[2020-03-01] MEDS ORDERED: HYDROcodone/APAP 7.5 MG/325 MG (LORTAB, LORCET PLUS) TABLET PO ONE ×2 (10:17→10:21)
[2020-03-01] MEDS ORDERED: FAMOTIDINE 20MG/2ML IV (PEPCID) ONE (10:42)
--- NOTE | 2020-03-01 15:00 | NUR ---
This RN assuming care of pt. Voided 50 mls (initial void since surgery). Dr Orona here - plan to discharge. 1615 Discharge instructions and appointments given. Verbalizes understanding. 1630 To exit via wheelchair. Pt's father awaiting at exit.
--- NOTE | 2020-03-01 15:18 | OPERATIVE REPORT ---
DATE OF SERVICE: PREOPERATIVE DIAGNOSES: A 29-year-old female with pelvic organ prolapse. POSTOPERATIVE DIAGNOSIS: A 29-year-old female with pelvic organ prolapse. PROCEDURE: Robotic-assisted total laparoscopic hysterectomy with bilateral salpingectomy. SURGEON: Minesh Velez DO RECYCLING PROGRAM MANAGER: Nataliia Boudreaux DNP, was necessary for manipulation and retraction throughout the procedure. ANESTHESIA: General endotracheal. ESTIMATED BLOOD LOSS: Minimal. URINE OUTPUT: 100 mL clear at the end of the procedure. FLUIDS: 1300 mL lactated Ringer's solution. FINDINGS: Grossly normal appearing uterus, bilateral fallopian tubes and ovaries with significant prolapse of the cervix to the level of the vaginal introitus with Valsalva. SPECIMEN SENT: Uterus, bilateral fallopian tubes. INDICATIONS FOR PROCEDURE: This 29-year-old female is a patient who saw me at her visit, we discussed permanent sterilization. She was desiring no more future childbearing; however, upon evaluation, we discovered that she did have some significant degree of prolapse. The patient was questioned about proceeding with treatment for this as well as long-term treatment for sterilization. We discussed hysterectomy in detail including risk of the procedure and she became more interested and wished to proceed with this after all of her other options were covered. Risks of the procedure in detail was discussed including risk of bleeding, infection, damage to surrounding structures including, but not limited to bowel, bladder, ureter, kidneys, possible need for reoperation, postoperative complications that may occur, risk from anesthesia, recovery timeframe, hospital stay, possible need for blood transfusion and even . After everything was discussed with the patient in detail, consent was obtained in the preoperative area, the patient was taken to the operating room. OPERATIVE REPORT IN DETAIL: Once in the operating room, general anesthesia was found to be adequate, placed in dorsal lithotomy position, prepped and draped in normal sterile fashion where time out was performed, and a Yang catheter was placed using sterile technique. A weighted speculum was inserted to the patient's vagina. Right angle retractor was used to visualize the cervix, which was grasped at 12 o'clock position using a long Allis clamp and 0 Vicryl suture was then placed through the anterior lip of the cervix and the Allis clamp was removed. The suture was used as my retraction at that point. I then gently sound the uterine cavity, depth was found to be approximately 9 to 10 cm. I selected a 10 cm Anita uterine manipulator tip and a 3.5 cm colpotomy ring. I advanced the manipulator tip into the uterus deploying the balloon and the colpotomy ring around the vaginal fornix. Excellent bimanual manipulation is noted after that. I then removed all the other instruments from the patient's vagina, performed change of gloves and took my attention to the abdomen where infraumbilically I infiltrated this area using 0.25% Marcaine to make an 8 mm incision with the knife and directed Veress needle through the incision until intraperitoneal placement was confirmed using saline drop test. An opening pressure of 2 mmHg was noted. I proceeded to max pressure of 15 mmHg, at which point I removed the Veress needle and introduced an 8 mm blunt laparoscopic da Fredy camera trocar. Once this was in place, I am able to confirm intraperitoneal placement using da Fredy laparoscope. A brief scan of the abdominal anatomy shows no evidence of damage upon entry. Upper abdominal anatomy appears grossly normal. I have the patient placed in steep Trendelenburg, we were unable to visualize all my pelvic anatomy as defined in my findings above. I placed two lateral trocars; these were approximately 8 cm lateral to my infraumbilical trocar. These were 8 mm trocars. Once these trocars were in place under direct visualization of the laparoscope, I bring in the da Fredy robot and docked it in appropriate fashion placing the vessel sealer in the left hand and monopolar charles in the right hand. I took my place at the da Fredy operative console. I performed the following dissection bilaterally starting at the uteroovarian ligament. I bipolar cauterized and transected using the vessel sealer. I then created a window in the mesosalpinx. I took this laterally using the vessel sealer amputating the fallopian tube from the mesosalpinx and its surrounding blood supply. I then grasped the round ligament, which I bipolar cauterized and transected using the vessel sealer. I then am able to grasp the entire broad ligament, which I bipolar cauterized and transected using vessel sealer down to the level of the lower uterine segment. I the anterior and posterior leaflets of the broad ligament, anterior leaflet was taken around the anterior vaginal fornix, posterior leaflet was taken around to the posterior vaginal fornix. This allows me to skeletonize the uterine vessels laterally, which are then bipolar cauterized and transected using the vessel sealer. I then created a colpotomy at 12 o'clock position on the colpotomy ring using monopolar dissection and then I took this circumferentially around the vaginal fornix amputating the cervix from the vaginal fornix. The cervix, uterus and bilateral fallopian tubes were then removed through the vagina. The lateral vaginal apices of the vaginal cuff are then reapproximated using 2-0 Vicryl suture in a [id number] fashion colposuspending them to the uterosacral ligaments. I then closed the remainder of the vaginal cuff using 2-0 V-Loc in a running fashion, after which there was no active bleeding noted from any of my dissection planes. I then undocked the da Fredy robot and proceeded with the remainder of the case laparoscopically. I copiously irrigated the pelvis using normal saline. Once again, there was no active bleeding noted from any of my dissection planes. I placed FloSeal hemostatic agent over all my planes of dissection to ensure excellent postoperative hemostasis. I then had the patient taken out of steep Trendelenburg where I released insufflation and removed the lateral trocars under direct visualization of laparoscope. The infraumbilical trocar was left in place to release insufflation and to introduce 10 mL of 0.25% Marcaine into the peritoneal cavity for postoperative pain management. This trocar was then removed as well. The skin of all 3 incisions were then reapproximated using 4-0 Monocryl in interrupted subcuticular stitches. Dermabond was applied to the incisions and Band-Aids were placed over the incisions as well. Yang catheter was left in place. The patient tolerated the procedure well and was taken to recovery area in stable condition. Lap and sponge count was correct at the end of the procedure, and instrument count was correct as well. Two grams of Ancef, 500 mg of Flagyl were given preoperatively for infection prophylaxis. Job ID: [id number] DocumentID: [id number] Dictated Date: 03/01/2020 09:30:21 [employer]aking Factory Worker Date: 03/01/2020 15:17:38 Dictated By: MINESH VELEZ DO
[2020-03-02] MEDS ORDERED: IBUPROFEN 600 MG (MOTRIN) TAB PO SCH
--- NOTE | 2020-03-02 07:45 | Anesthesia-General Post-Op ---
General Patient Condition Mental Status/LOC: Same as Preop Cardiovascular: Satisfactory Nausea/Vomiting: Absent Respiratory: Satisfactory Pain: Controlled Complications: Absent Post Op Complications Complications None Follow Up Care/Instructions Patient Instructions None needed. Anesthesia/Patient Condition Patient Condition Patient discharged. Chart reviewed. No apparent anesthesia complications noted. No complications reported per nursing. PATTI GONZALEZ CRNA Mar 02, 2020 07:45
== END 2020-03-01 16:30 | disposition home or self-care (01) ==
LOC: SDC 06:05 → WS 10:00 → SDC 11:03 → WS 16:30
PROVIDERS: ADMIT Obstetrics & Gynecology; ATTEND Obstetrics & Gynecology
DX: N80.0 Endometriosis of uterus (principal); N81.89 Other female genital prolapse; N39.3 Stress incontinence (female) (male); Z83.3 Family history of diabetes mellitus; Z82.49 Family history of ischemic heart disease and other diseases of the circulatory system
CPT/HCPCS: 36415; 80053; 84703; 85025; 86850; 86900; 86901; 87081; 88307

== ENCOUNTER → 2021-01-27 | Outpatient (CLI) | payer BC, OTHER ==
[~2021-01-27] MED LIST changes: -DCS100C PO; +DOCU-239 PO; +HYDR-34 PO; +SIME80TA16 PO
--- NOTE | 2021-01-27 18:16 | Diagnostic Imaging Report ---
PROCEDURE: Pelvic comp/transvaginal sonogram. TECHNIQUE: Complete transabdominal and transvaginal pelvic ultrasound was performed. In addition, limited pelvic Doppler was performed. INDICATION: Pelvic and perineal pain. Patient underwent hysterectomy in February 2020. Uterus is surgically absent. Ovaries cannot be visualized. No adnexal mass or free fluid is detected. IMPRESSION: Status post hysterectomy. No pelvic mass or free fluid is identified. Dictated by: Dictated on workstation # [id number]
== END ==
LOC: RAD 14:07
PROVIDERS: ATTEND Obstetrics & Gynecology
DX: R10.2 Pelvic and perineal pain (principal); Z90.710 Acquired absence of both cervix and uterus
CPT/HCPCS: 76830; 76856

== ENCOUNTER 2021-11-03 11:31 | Emergency (ER) | payer BC ==
[~2021-11-03] VITALS: Ht 165 cm; Wt 63.0 kg
[2021-11-03 11:40] VITALS: BP 121/79
--- NOTE | 2021-11-03 12:14 | Diagnostic Imaging Report ---
EXAM: HAND, RIGHT, 3 VIEWS INDICATION: Right hand pain. COMPARISON: None. FINDINGS: No fracture or malalignment. Soft tissue shadows are unremarkable. IMPRESSION: Negative right hand radiographs. Dictated by: Dictated on workstation # [id number]
--- NOTE | 2021-11-03 12:20 | ED Upper Extremity ---
General Chief Complaint: Upper Extremity Stated Complaint: R WRIST PAIN Nursing Triage Note: FELL LAST NIGHT HURTING RIGHT HAND. DENIES HITTING HEAD. STATES SHE HAD BEEN DRINKING WHEN SHE FELL. Source: patient Exam Limitations: no limitations History of Present Illness Date Seen by Provider: Nov 03, 2021 Time Seen by Provider: 11:49 Initial Comments Patient to ER by private conveyance chief complaint she fell down in the gravel driveway on outstretched hands last night. She is having some pain and swelling despite ice today. She took some NSAIDs. No previous fracture of her right hand. Difficulty with mobility of her thumb and bruising at the base of her right first digit. Allergies and Home Medications Allergies Coded Allergies: No Known Drug Allergies (Unverified , 03/01/20) Patient Home Medication List Home Medication List Reviewed: Yes Docusate Sodium (Dok) 100 Mg Capsule, 100 MG PO BID PRN for CONSTIPATION-1ST LINE Prescribed by: NURY VELEZ on 03/01/20713 Hydrocodone Bit/Acetaminophen (HYDROcodone/APAP 7.5/325 TAB) 1 Ea Tablet, 2 EA PO Q6H PRN for Pain-See Instructions Prescribed by: NURY VELEZ on 03/01/20713 Ibuprofen (Ibu) 600 Mg Tablet, 600 MG PO Q6H Prescribed by: NURY VELEZ on 03/01/20713 Simethicone (Simethicone) 80 Mg Tab.chew, 40 MG PO TID PRN for INDIGESTION 2ND LINE Prescribed by: NURY VELEZ on 03/01/20713 Review of Systems Constitutional: No chills EENTM: No hearing loss, No ear pain Respiratory: No cough, No dyspnea on exertion All Other Systems Reviewed Negative Unless Noted: Yes Past Uqhvwgu-Xugsxf-Mghshx Hx Patient Social History Tobacco Use?: No Substance use?: No Alcohol Use?: Yes Alcohol Frequency: Once in a while Immunizations Up To Date Tetanus Booster (TDap): Unknown PED Vaccines UTD: Yes Seasonal Allergies Seasonal Allergies: No Past Medical History Surgeries: No Respiratory: No Cardiac: No Neurological: No Genitourinary: No Gastrointestinal: No Musculoskeletal: No Endocrine: No HEENT: No Cancer: No Psychosocial: No Integumentary: No Blood Disorders: No Adverse Reaction/Blood Tranf: No Family Medical History Cardiovascular disease 19 FATHER 19 MOTHER Diabetes mellitus 19 FATHER 19 MOTHER Hypercholesterolemia 19 FATHER Hypertension 19 MOTHER Respiratory disorder 19 MOTHER Physical Exam Vital Signs Vital Signs - First Documented 11/03/21 11:40 Temp 36.3 Pulse 68 Resp 16 B/P (MAP) 121/79 (93) Pulse Ox 100 O2 Delivery Room Air Capillary Refill : Less Than 3 Seconds Height, Weight, BMI Height: 5'5.00" Weight: 139lbs. 6.0oz. [id number]; 23.00 BMI Method: General Appearance: WD/WN, no apparent distress HEENT: PERRL/EOMI, pharynx normal Neck: full range of motion, normal inspection Cardiovascular: normal peripheral pulses, regular rate, rhythm Respiratory: no respiratory distress, no accessory muscle use Wrist: Yes pain (Pain over the anatomic snuffbox on the right wrist and ecchymoses on the proximal right, first metacarpal and carpals on the radial side.) Hand: Right, bone tenderness, ecchymosis Neurologic/Psychiatric: no motor/sensory deficits, alert, normal mood/affect Skin: ecchymosis (Palmar side right hand radial side) Progress/Results/Core Measures Results/Orders My Orders Orders - NICOLE SINGH Hand, Right, 3 Views (11/03/21 11:47) Vital Signs/I&O 11/03/21 11:40 Temp 36.3 Pulse 68 Resp 16 B/P (MAP) 121/79 (93) Pulse Ox 100 O2 Delivery Room Air Blood Pressure Mean: 93 Diagnostic Imaging Diagonstic Imaging: Xray Plain Films/CT/US/NM/MRI: hand (r) Comments NAME: SHIV ROBISON Brenda [facility] REC#: [id number] PT STATUS: REG ER : 1990 PHYSICIAN: NICOLE SINGH MD ADMIT DATE: 11/03/21/ER Draft Date of Exam:11/03/21 HAND, RIGHT, 3 VIEWS EXAM: HAND, RIGHT, 3 VIEWS INDICATION: Right hand pain. COMPARISON: None. FINDINGS: No fracture or malalignment. Soft tissue shadows are unremarkable. IMPRESSION: Negative right hand radiographs. Dictated on workstation # [id number] Dict: 11/03/21 1209 Trans: 11/03/21 1214 [id number] Interpreted by: HALEY TOWNSEND MD Electronically signed by: Reviewed: Reviewed by Me Departure Impression Primary Impression: Contusion of right hand, initial encounter Disposition: 01 HOME, SELF-CARE Condition: Stable Departure-Patient Inst. Decision time for Depature: 12:18 Referrals: KATT ORTEGA,LOCAL PHYSICIAN (PCP) Primary Care Physician Patient Instructions: Contusion (DC) Add. Discharge Instructions: While I do not see a fracture on her x-ray today there is always concern for a missed fracture that is very slight in the hand that can lead to degeneration in the hand months or years later and difficulty using your hand. If you are still having significant pain swelling or difficulty moving your thumb in 7 to 10 days then you would need to follow-up with your primary care doctor or the hand surgeon Dr. ORTEGA by calling for an appointment. If your symptoms are improving however then you do not necessarily need reexa mination. Ice 20 minutes on every 2 hours while awake for the first 2 to 3 days to reduce swelling and pain. You may wrap the hand with an Timi wrap or use a splint for the first 1 to 2 weeks as necessary for compression and pain relief. Tylenol 1000 mg every 8 hours as needed for pain. Ibuprofen 800 mg every 8 hours needed for pain. Keep hand elevated above the level your heart for the first 2 to 3 days to reduce swelling. All discharge instructions reviewed with patient and/or family. Voiced understanding. Work/School Note: Work Release Form Date Seen in the Emergency Department: Nov 03, 2021 Return to Work: Nov 04, 2021 Restrictions: Need Release from Doctor Other Restrictions Listed Below: May wear splint on right hand until 11/17/2021. Copy Copies To 1: KATT ORTEGA TITUS J Nov 03, 2021 12:20
== END 2021-11-03 12:29 | disposition home or self-care (01) ==
LOC: EDUNIT# 11:31 → ER 11:33
DX: S60.011A Contusion of right thumb without damage to nail, initial encounter (principal); W18.30XA Fall on same level, unspecified, initial encounter
CPT/HCPCS: 73130

== ENCOUNTER 2022-10-05 13:47 | Emergency (ER) | payer BC ==
[~2022-10-05] VITALS: Ht 165.1 cm; Wt 63.0 kg
--- NOTE | 2022-10-05 14:13 | ED Headache ---
General Chief Complaint: Head/Cervical Problems Stated Complaint: MIGRAINE Nursing Triage Note: HAS HAD A MIGRAINE FOR ONE WEEK STARTED USING FLONASE AND EXCEDRIN AND ALEVIE MIGRAINE TO NO AVAIL. 6/10 ON PAIN SCALE DESCRIBES PAININ THE FOREHEAD THAT GOES OVER THE TOP OF HER HEAD. ALSO C/O BLURRY, "MUSHY" IN HER PERIFIAL VISION. Source: patient Exam Limitations: no limitations (ARNAV SOTO) History of Present Illness Date Seen by Provider: Oct 05, 2022 Time Seen by Provider: 14:11 Initial Comments Is a 32-year-old female who presents ED with a migraine. She states she started using Flonase, Excedrin and Aleve without much in pain. The pain started this past Wednesday with a gradual onset. Currently rates pain 6 out of 10. She states the pain starts in her forehead and radiates to the back of her head and neck. She states it feels like her neck is swollen. She describes the head pain throbbing and constant. She reports some blurry vision with photophobia. History of migraines before. She states it feels very similar besides the pain in her neck. She denies of any cough, runny nose, sore throat, chest pain, shortness of breath, abdominal pain, unilateral muscle weakness or sensory changes, injury, fever. She denies blood thinner use. (ARNAV SOTO) Allergies and Home Medications Allergies Coded Allergies: No Known Drug Allergies (Unverified , 10/05/22) Patient Home Medication List Home Medication List Reviewed: Yes (ARNAV SOTO) Docusate Sodium (Dok) 100 Mg Capsule, 100 MG PO BID PRN for CONSTIPATION-1ST LINE Prescribed by: NURY VELEZ on 03/01/20713 Hydrocodone Bit/Acetaminophen (HYDROcodone/APAP 7.5/325 TAB) 1 Ea Tablet, 2 EA PO Q6H PRN for Pain-See Instructions Prescribed by: NURY VELEZ on 03/01/20713 Ibuprofen (Ibu) 600 Mg Tablet, 600 MG PO Q6H Prescribed by: NURY VELEZ on 03/01/20713 Simethicone (Simethicone) 80 Mg Tab.chew, 40 MG PO TID PRN for INDIGESTION 2ND LINE Prescribed by: NURY VELEZ on 03/01/2014 Review of Systems Review of Systems Constitutional: No chills, No diaphoresis, No fever, No malaise, No weakness Eyes: Blurred Vision; Denies Drainage, Denies Decreased Acuity; Photophobia Ears, Nose, Mouth, Throat: denies ear pain, denies ear discharge, denies nose discharge, denies mouth pain Respiratory: No cough, No dyspnea on exertion Cardiovascular: No chest pain Gastrointestinal: No abdominal pain, No diarrhea, No nausea, No vomiting Genitourinary: No decreased output, No discharge Musculoskeletal: No back pain, No joint pain Skin: No change in color, No change in hair/nails Psychiatric/Neurological: Headache (ARNAV SOTO) Past Okszhnf-Vmvjjo-Vblfpv Hx Patient Social History Tobacco Use?: No Use of E-Cig and/or Vaping dev: No Substance use?: No Alcohol Use?: Yes Alcohol type: Hard Liquor Alcohol Frequency: Rarely (ARNAV SOTO) Immunizations Up To Date Tetanus Booster (TDap): Unknown PED Vaccines UTD: Yes Influenza Vaccine Up-to-Date: Yes; Up-to-Date First/Initial COVID19 Vaccinat: 2 SHOTS (ARNAV SOTO) Seasonal Allergies Seasonal Allergies: No (ARNAV SOTO) Past Medical History Surgery/Hospitalization HX: MIGRAINES, SEASONAL ALLERGIES PARTIAL HYSTER Surgeries: No Respiratory: No Cardiac: No Neurological: No Genitourinary: No Gastrointestinal: No Musculoskeletal: No Endocrine: No HEENT: No Cancer: No Psychosocial: No Integumentary: No Blood Disorders: No Adverse Reaction/Blood Tranf: No (ARNAV SOTO) Family Medical History Cardiovascular disease 19 FATHER 19 MOTHER Diabetes mellitus 19 FATHER 19 MOTHER Hypercholesterolemia 19 FATHER Hypertension 19 MOTHER Respiratory disorder 19 MOTHER Physical Exam Vital Signs Vital Signs - First Documented 10/05/22 13:50 Temp 36.9 Pulse 82 Resp 16 B/P (MAP) 135/82 (99) Pulse Ox 98 O2 Delivery Room Air (LIAT RUBIO MD) Vital Signs Capillary Refill : Less Than 3 Seconds (ARNAV SOTO) Height, Weight, BMI Height: 5'5.00" Weight: 139lbs. 6.0oz. 63.156173eq; 23.00 BMI Method: General Appearance: WD/WN, no apparent distress HEENT: PERRL/EOMI, normal ENT inspection, TMs normal, pharynx normal Neck: non-tender, full range of motion, supple; No normal inspection Cardiovascular: regular rate, rhythm, no edema, no gallop, no JVD Respiratory: chest non-tender, lungs clear, normal breath sounds, no respiratory distress, no accessory muscle use Gastrointestinal: normal bowel sounds, non tender, soft, no organomegaly Back: normal inspection, no CVA tenderness, no vertebral tenderness Extremities: normal range of motion, non-tender, normal inspection, no pedal edema Psychiatric: alert, oriented x 3 Crainal Nerves: normal hearing Motor/Sensory: no motor deficit, no sensory deficit, no pronator drift Skin: normal color, warm/dry (ARNAV SOTO) Progress/Results/Core Measures Results/Orders Lab Results Laboratory Tests Test 10/05/22 14:48 Range/Units White Blood Count 7.4 4.3-11.0 10^3/uL Red Blood Count 4.88 3.80-5.11 10^6/uL Hemoglobin 14.2 11.5-16.0 g/dL Hematocrit 42 35-52 % Mean Corpuscular Volume 86 80-99 fL Mean Corpuscular Hemoglobin 29 25-34 pg Mean Corpuscular Hemoglobin Concent 34 32-36 g/dL Red Cell Distribution Width 11.9 10.0-14.5 % Platelet Count 252 130-400 10^3/uL Mean Platelet Volume 9.4 9.0-12.2 fL Immature Granulocyte % (Auto) 0 % Neutrophils (%) (Auto) 65 42-75 % Lymphocytes (%) (Auto) 26 12-44 % Monocytes (%) (Auto) 7 0-12 % Eosinophils (%) (Auto) 1 0-10 % Basophils (%) (Auto) 1 0-10 % Neutrophils # (Auto) 4.8 1.8-7.8 10^3/uL Lymphocytes # (Auto) 2.0 1.0-4.0 10^3/uL Monocytes # (Auto) 0.5 0.0-1.0 10^3/uL Eosinophils # (Auto) 0.1 0.0-0.3 10^3/uL Basophils # (Auto) 0.0 0.0-0.1 10^3/uL Immature Granulocyte # (Auto) 0.0 0.0-0.1 10^3/uL Sodium Level 138 135-145 MMOL/L Potassium Level 3.9 3.6-5.0 MMOL/L Chloride Level 107 98-107 MMOL/L Carbon Dioxide Level 23 21-32 MMOL/L Anion Gap 8 5-14 MMOL/L Blood Urea Nitrogen 13 7-18 MG/DL Creatinine 0.70 0.60-1.30 MG/DL Estimat Glomerular Filtration Rate 119 BUN/Creatinine Ratio 19 Glucose Level 90 70-105 MG/DL Calcium Level 9.8 8.5-10.1 MG/DL Corrected Calcium 8.5-10.1 MG/DL Total Bilirubin 0.5 0.1-1.0 MG/DL Aspartate Amino Transf (AST/SGOT) 25 5-34 U/L Alanine Aminotransferase (ALT/SGPT) 31 0-55 U/L Alkaline Phosphatase 66 40-136 U/L Total Protein 7.7 6.4-8.2 GM/DL Albumin 4.7 H 3.2-4.5 GM/DL (LIAT RUBIO MD) Vital Signs/I&O 10/05/22 10/05/22 13:50 16:00 Temp 36.9 37.0 Pulse 82 71 Resp 16 15 B/P (MAP) 135/82 (99) 124/67 Pulse Ox 98 100 O2 Delivery Room Air Room Air (LIAT RUBIO MD) Blood Pressure Mean: 99 Departure Communication (PCP) Patient is a 32-year-old female who presents the ED with head pain. Head pain is rated 6 out of 10. Located at front part of her head with radiation to the back part of her head and neck. Photophobia. Nausea without vomiting. Similar type headaches in the past. Denies worst headache of her life. She has no focal neural deficits. Blurry vision with photophobia. Due to no neurological red flag findings. Afebrile. No meningeal signs. Imaging was held. Vital signs stable. General lab work was ordered which was unremarkable CBC, CMP. Received migraine cocktail with complete resolution of her migraine. Patient was observed for 2 hours. She states she is ready to be discharged. Recommend continue with Excedrin Migraine as needed. Follow-up with PCP in 2 to 3 days for reevaluation. If any worsening symptoms return back to ED for further evaluation. (ARNAV SOTO) Impression Primary Impression: Migraine Disposition: 01 HOME, SELF-CARE Condition: Stable Departure-Patient Inst. Decision time for Depature: 15:48 (ARNAV SOTO) Referrals: [facility],LOCAL PHYSICIAN (PCP) Primary Care Physician Patient Instructions: Migraines in adults Add. Discharge Instructions: Continue with your Excedrin Migraine as needed. If any worsening symptoms return back to ED for further evaluation. Continue follow-up with your primary care physician All discharge instructions reviewed with patient and/or family. Voiced understanding. ATTENDING PHYSICIAN NOTE: I was physically present as attending physician in the emergency department during the care of this patient, but I was not directly involved in the decision making or delivery of care for this patient. (LIAT RUBIO MD) ARNAV SOTO Oct 05, 2022 14:13 LIAT RUBIO MD Oct 07, 2022 14:06
[2022-10-05] MEDS ORDERED: KETOROLAC 30 MG/ML VIAL IVP ONE (14:15)
[2022-10-05] MEDS ORDERED: diphenhydrAMINE 50 MG/ML INJ (BENADRYL) IVP ONE (14:15)
[2022-10-05] MEDS ORDERED: PROCHLORPERAZINE 10 MG/2ML INJ (COMPAZINE) IV ONE (14:15)
[2022-10-05] MEDS ORDERED: NS IV 1000 ML 1,000 ML IV ONE (14:15)
[2022-10-05 15:03] LABS: BASOPHILS % (AUTO) 1 % (0-10); EOSINOPHILS # (AUTO) 0.1 10^3/uL (0.0-0.3); EOSINOPHILS % (AUTO) 1 % (0-10); HEMATOCRIT 42 % (35-52); HEMOGLOBIN 14.2 g/dL (11.5-16.0); LYMPHOCYTES % (AUTO) 26 % (12-44); MEAN CORPUSCULAR HEMOGLOBIN 29 pg (25-34); MEAN CORPUSCULAR HGB CONC 34 g/dL (32-36); MEAN CORPUSCULAR VOLUME 86 fL (80-99); MEAN PLATELET VOLUME 9.4 fL (9.0-12.2); MONOCYTES # (AUTO) 0.5 10^3/uL (0.0-1.0); MONOCYTES % (AUTO) 7 % (0-12); NEUTROPHILS # (AUTO) 4.8 10^3/uL (1.8-7.8); NEUTROPHILS % (AUTO) 65 % (42-75); PLATELET COUNT 252 10^3/uL (130-400); WHITE BLOOD COUNT 7.4 10^3/uL (4.3-11.0)
[2022-10-05 15:10] LABS: ALBUMIN 4.7 GM/DL (3.2-4.5); CHLORIDE 107 MMOL/L (98-107); POTASSIUM 3.9 MMOL/L (3.6-5.0); SODIUM 138 MMOL/L (135-145)
[2022-10-05 15:12] LABS: CALCIUM 9.8 MG/DL (8.5-10.1)
[2022-10-05 15:13] LABS: GLUCOSE 90 MG/DL (70-105); TOTAL PROTEIN 7.7 GM/DL (6.4-8.2)
[2022-10-05 15:14] LABS: BILIRUBIN,TOTAL 0.5 MG/DL (0.1-1.0); CARBON DIOXIDE 23 MMOL/L (21-32)
[2022-10-05 15:16] LABS: ALKALINE PHOSPHATASE 66 U/L (40-136); GFR ESTIMATED 119
[2022-10-05 15:17] LABS: BUN/CREATININE RATIO 19
[2022-10-05 15:19] LABS: ALANINE AMINOTRANSFERASE 31 U/L (0-55)
[2022-10-05 16:00] VITALS: BP 124/67
== END 2022-10-05 16:00 | disposition home or self-care (01) ==
LOC: EDUNIT# 13:47 → ER 13:49
DX: G43.909 Migraine, unspecified, not intractable, without status migrainosus (principal)
CPT/HCPCS: 36415; 80053; 85025